=== PATIENT | male | born 1970 | race Caucasian/White ===

== ENCOUNTER 2017-07-31 12:03 | Inpatient (IN) | payer OTHER ==
[2017-07-31 15:32] VITALS: BMI 34.4
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
[2017-07-31] MEDS ORDERED: guaiFENesin/D-METHORPHAN HB 10 ML UNIT-DOSE CUPS PO PRN (18:00)
[2017-07-31] MEDS ORDERED: P-EPHED 60MG/TRIPROLIDI 2.5MG TABLET PO PRN (18:00)
[2017-07-31] MEDS ORDERED: IBUPROFEN 400 MG TABLET (FP) PO PRN (18:00)
[2017-07-31] MEDS ORDERED: MAGNESIUM HYDROX 2400MG/30ML ORAL SUSPENSION 30 ML CUP PO PRN (18:00)
[2017-07-31] MEDS ORDERED: LOPERAMIDE HCL 2 MG CAPSULE PO PRN (18:00)
[2017-07-31] MEDS ORDERED: MAG HYDROX/AL HYDROX/SIMETH 30 ML UNIT-DOSE CUP PO PRN (18:00)
[2017-07-31] MEDS ORDERED: ACETAMINOPHEN 325 MG TABLET (FP) PO PRN (18:00)
[2017-07-31] MEDS ORDERED: MAGNESIUM CITRATE 300 ML BOTTLE PO PRN (18:00)
[2017-07-31] MEDS ORDERED: NICOTINE POLACRILEX 2 MG GUM BC PRN (18:00)
[2017-07-31] MEDS ORDERED: PATIENT'S OWN MEDICATION (NON-FORMULARY) (Ipratropium/Albuterol Sulfate [Combivent Respima IH PRN (18:03)
[2017-07-31] MEDS ORDERED: ALBUTEROL SO4 2.5/IPRATROPIUM 0.5 INH SOL 3 ML VIAL.NEB. NEB PRN (18:12)
[2017-07-31 21:10] LABS: URINE APPEARANCE TURBID; URINE BILIRUBIN NEGATIVE (NEGATIVE); URINE BLOOD NEGATIVE (NEGATIVE); URINE COLOR AMBER; URINE GLUCOSE (UA) NEGATIVE (NEGATIVE); URINE KETONE TRACE (NEGATIVE); URINE LEUK ESTERASE NEGATIVE (NEGATIVE); URINE NITRITE NEGATIVE (NEGATIVE); URINE PROTEIN NEGATIVE (NEGATIVE)
[2017-07-31] MEDS: BUDESONIDE/FORMETEROL FUMARATE 80/4.5 mcg INHALER IH SCH (21:47)
[2017-07-31] MEDS: THIAMINE HCL 100 MG TABLET (FP) PO SCH (21:47)
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
[2017-08-01] MEDS ORDERED: METHADONE HCL 40 MG DISPERSABLE TABLET ONE (07:42)
[2017-08-01] MEDS ORDERED: METHADONE HCL 10 MG TABLET ONE (07:42)
[2017-08-01] MEDS: METHADONE 40 MG, METHADONE 20 MG PO SCH (07:44)
[2017-08-01] MEDS ORDERED: METHADONE HCL 10 MG TABLET PO SCH (07:45)
[2017-08-01] MEDS ORDERED: NICOTINE 14 MG/24 HOURS TOPICAL PATCH TD SCH (10:00)
[2017-08-01 10:24] LABS: HEMATOCRIT 42.7 % (35.4-49); HEMOGLOBIN 14.6 GM/dL (11.7-16.9); MCH 29.8 pg (25.7-33.7); MCHC 34.1 g/dl (32.0-35.9); MEAN CELL VOLUME 87.2 fl (80-96); MEAN PLT VOLUME 8.9 fl (7.5-11.1); PLATELET COUNT 119 K/MM3 (134-434); RBC 4.89 M/mm3 (4.00-5.60); RDW 13.1 % (11.9-15.9)
[2017-08-01 10:33] LABS: CALCIUM 9.1 mg/dL (8.5-10.1); CHLORIDE 103 mmol/L (98-107); SODIUM 142 mmol/L (136-145)
[2017-08-01 10:40] LABS: ALBUMIN 4.1 g/dl (3.4-5.0); ALK PHOS 64 U/L (45-117); ANION GAP 10 (8-16); BILIRUBIN,TOTAL 0.6 mg/dL (0.2-1.0); BLOOD UREA NITROGEN 14 mg/dL (7-18); CO2 29 mmol/L (21-32); CREATININE 0.9 mg/dL (0.7-1.3); SGOT/AST 40 U/L (15-37); SGPT/ALT 47 U/L (12-78)
[2017-08-01] MEDS: amLODIPine BESYLATE 10 MG TABLET (FP) PO SCH (10:42)
[2017-08-01] MEDS: PRENATAL VITAMINS W/ FOLIC ACID TABLET (FP) PO SCH (10:42)
[2017-08-01] MEDS: BUDESONIDE/FORMETEROL FUMARATE 80/4.5 mcg INHALER IH SCH ×2 (10:46→21:08)
[2017-08-01] MEDS: MENTHOL/PHENOL 1 EACH UD MM PRN ×2 (10:47→14:42)
[2017-08-01 10:48] LABS: GLUCOSE,RANDOM 41 mg/dL (74-106)
--- NOTE | 2017-08-01 11:17 | EKG ---
Test Reason : Blood Pressure : / mmHG Vent. Rate : 066 BPM Atrial Rate : 066 BPM P-R Int : 164 ms QRS Dur : 084 ms QT Int : 426 ms P-R-T Axes : 061 012 016 degrees QTc Int : 446 ms NORMAL SINUS RHYTHM NORMAL ECG NO PREVIOUS ECGS AVAILABLE Confirmed by TOMEKA PRATHER, FABY ([id number]) on 08/01/2017 11:17:01 AM Referred By: Confirmed By:FABY ECKERT MD
[2017-08-01] MEDS ORDERED: BUSPIRONE HCL PO SCH (13:45)
[2017-08-01] MEDS ORDERED: PT OWN MED DRAWER 7, Y5N ONE (14:19)
[2017-08-01] MEDS: hydrOXYzine PAMOATE 50 MG CAPSULE (FP) PO PRN ×2 (14:41→21:09)
[2017-08-01] MEDS: NICOTINE POLACRILEX 4 MG GUM BUC PRN (14:42)
--- NOTE | 2017-08-01 14:48 | PN ---
[facility] Progress Note Note: Vital Signs Temperature 97.8 F 08/01/17 07:11 Pulse Rate 74 08/01/17 10:00 Respiratory Rate 20 08/01/17 10:00 Blood Pressure 110/63 08/01/17 10:00 O2 Sat by Pulse Oximetry (%) 08/01/17 08/01/17 05:50 05:50 WBC 9.0 RBC 4.89 Hgb 14.6 Hct 42.7 MCV 87.2 MCHC 34.1 RDW 13.1 Plt Count 119 L Sodium 142 Potassium 4.0 Chloride 103 Carbon Dioxide 29 Anion Gap 10 BUN 14 Creatinine 0.9 Patient with BGM = 40 on lab results from specimen taken 07/31/17. Patient AOX3, denies dizziness, chest pain or SOB. Reports feeling fine and that his BGM was so low because he was using drugs. Patient reports he continues experience cigarette cravings. Patient in no apparent distress, ambulating in the unit. No adventitious breath sounds present. BGM today 148. Plan: Increase fluids Increase Nicotine patch 21 mg 08/02/17 Increase Nicotine gum 4mg 08/01/17 Increase fluids continue to monitor
[2017-08-01] MEDS: MIRTAZAPINE 15 MG TABLET (FP) PO SCH (21:08)
[2017-08-01] MEDS: THIAMINE HCL 100 MG TABLET (FP) PO SCH (21:09)
[2017-08-02] MEDS ORDERED: METHADONE HCL 10 MG TABLET ONE (04:55)
[2017-08-02] MEDS ORDERED: METHADONE HCL 40 MG DISPERSABLE TABLET ONE (04:55)
[2017-08-02] MEDS: METHADONE 40 MG, METHADONE 20 MG PO SCH (06:26)
[2017-08-02] MEDS: hydrOXYzine PAMOATE 50 MG CAPSULE (FP) PO PRN ×3 (06:27→17:18)
[2017-08-02] MEDS: MENTHOL/PHENOL 1 EACH UD MM PRN ×2 (06:28→15:50)
[2017-08-02] MEDS: PRENATAL VITAMINS W/ FOLIC ACID TABLET (FP) PO SCH (09:56)
[2017-08-02] MEDS: amLODIPine BESYLATE 10 MG TABLET (FP) PO SCH (09:56)
[2017-08-02] MEDS: NICOTINE 21 MG/24 HOURS TOPICAL PATCH TD SCH (09:56)
[2017-08-02] MEDS: BUDESONIDE/FORMETEROL FUMARATE 80/4.5 mcg INHALER IH SCH ×2 (09:56→21:12)
[2017-08-02] MEDS ORDERED: BACITRACIN 0.9 GM PACKET TP SCH (10:00)
[2017-08-02] MEDS: NICOTINE POLACRILEX 4 MG GUM BUC PRN ×2 (12:12→21:14)
[2017-08-02] MEDS ORDERED: COLLOIDAL OATMEAL 1 BAR EACH TP PRN (14:23)
[2017-08-02] MEDS: MIRTAZAPINE 15 MG TABLET (FP) PO SCH (21:13)
[2017-08-02] MEDS: BACITRACIN 15 GM TUBE TOPICAL OINTMENT TP SCH (21:14)
[2017-08-02] MEDS: THIAMINE HCL 100 MG TABLET (FP) PO SCH (21:52)
[2017-08-03] MEDS ORDERED: METHADONE HCL 40 MG DISPERSABLE TABLET ONE (05:05)
[2017-08-03] MEDS ORDERED: METHADONE HCL 10 MG TABLET ONE (05:05)
[2017-08-03] MEDS: hydrOXYzine PAMOATE 50 MG CAPSULE (FP) PO PRN ×3 (06:15→21:01)
[2017-08-03] MEDS: METHADONE 40 MG, METHADONE 20 MG PO SCH (06:15)
[2017-08-03] MEDS: BUDESONIDE/FORMETEROL FUMARATE 80/4.5 mcg INHALER IH SCH ×2 (09:43→21:02)
[2017-08-03] MEDS: amLODIPine BESYLATE 10 MG TABLET (FP) PO SCH (09:43)
[2017-08-03] MEDS: BACITRACIN 15 GM TUBE TOPICAL OINTMENT TP SCH (09:43)
[2017-08-03] MEDS: NICOTINE 21 MG/24 HOURS TOPICAL PATCH TD SCH (09:43)
[2017-08-03] MEDS: PRENATAL VITAMINS W/ FOLIC ACID TABLET (FP) PO SCH (09:44)
[2017-08-03] MEDS: MENTHOL/PHENOL 1 EACH UD MM PRN (14:06)
[2017-08-03] MEDS: NICOTINE POLACRILEX 4 MG GUM BUC PRN (17:19)
[2017-08-03] MEDS: MIRTAZAPINE 15 MG TABLET (FP) PO SCH (21:01)
[2017-08-03] MEDS: THIAMINE HCL 100 MG TABLET (FP) PO SCH (21:01)
[2017-08-03] MEDS: BACITRACIN 0.9 GM PACKET TP SCH (21:01)
[2017-08-04] MEDS ORDERED: METHADONE HCL 10 MG TABLET ONE (06:19)
[2017-08-04] MEDS ORDERED: METHADONE HCL 40 MG DISPERSABLE TABLET ONE (06:20)
[2017-08-04] MEDS: METHADONE 40 MG, METHADONE 20 MG PO SCH (06:28)
[2017-08-04] MEDS: hydrOXYzine PAMOATE 50 MG CAPSULE (FP) PO PRN ×3 (07:15→21:03)
[2017-08-04] MEDS: NICOTINE POLACRILEX 4 MG GUM BUC PRN (07:16)
[2017-08-04] MEDS: BUDESONIDE/FORMETEROL FUMARATE 80/4.5 mcg INHALER IH SCH ×2 (09:36→21:04)
[2017-08-04] MEDS: PRENATAL VITAMINS W/ FOLIC ACID TABLET (FP) PO SCH (09:36)
[2017-08-04] MEDS: amLODIPine BESYLATE 10 MG TABLET (FP) PO SCH (09:36)
[2017-08-04] MEDS: NICOTINE 21 MG/24 HOURS TOPICAL PATCH TD SCH (09:36)
[2017-08-04] MEDS: BACITRACIN 0.9 GM PACKET TP SCH ×2 (09:37→21:46)
--- NOTE | 2017-08-04 10:00 | PN ---
Psychiatric Progress Note Vital Signs: Vital Signs Period Temp Pulse Resp BP Sys/Myers Pulse Ox Last 24 Hr 97.8 F 69-79 17-18 125-138/77-97 Date of Session: 08/04/17 Chief Complaint:: Insomnia HPI: Patient addressing Sedative, Hypnotic or Anxiolytic Dependence comorbid with Opoid Dependence on Agonist Therapy, Nicotine Dependence, Anxiety Disorder , Substance-Induced Anxiety Disorder and Substance-Induced Sleep Disorder ROS: COPD, HTN, PPD+, Obesity Current Medications: Active Medications Generic Name Dose Route Start Last Admin Trade Name Freq PRN Reason Stop Dose Admin Acetaminophen 650 mg 07/31/17 18:00 Tylenol - PO Q4H PRN FEVER Al Hydroxide/Mg Hydroxide 30 ml 07/31/17 18:00 Mylanta Oral Suspension - PO Q6H PRN DYSPEPSIA Albuterol/Ipratropium 1 amp 07/31/17 18:12 Duoneb - NEB Q6H PRN SHORTNESS OF BREATH Amlodipine Besylate 10 mg 08/01/17 10:00 08/04/17 09:36 Norvasc - PO 10 mg DAILY OPAL Administration Bacitracin 0.9 gm 08/03/17 10:55 08/04/17 09:37 Bacitracin - TP 08/07/17 21:59 0.9 gm BID OPAL Administration Budesonide/Formoterol Fumarate 1 puff 07/31/17 22:00 08/04/17 09:36 Symbicort 80/4.5mcg - IH 1 inhaler BID OPAL Administration Buspirone HCl 15 mg 08/01/17 22:00 08/04/17 09:36 Buspar - PO 15 mg BID OPAL Administration Colloidal Oatmeal 1 applic 08/02/17 14:23 08/02/17 14:32 Aveeno Soap - TP 1 applic DAILY PRN Administration HYGEINE Eucalyptus/Menthol/Phenol/Sorbitol 1 each 07/31/17 18:00 08/03/17 14:06 Cepastat Lozenge - MM 1 each Q4H PRN Administration SORE THROAT Guaifenesin 10 ml 07/31/17 18:00 Robitussin Dm - PO Q6H PRN COUGH Hydroxyzine Pamoate 50 mg 07/31/17 18:00 08/04/17 07:15 Vistaril - PO 50 mg Q4H PRN Administration AGITATION Ibuprofen 400 mg 07/31/17 18:00 Motrin - PO Q6H PRN Pain level 4-6 Loperamide HCl 4 mg 07/31/17 18:00 Imodium - PO Q6H PRN DIARRHEA Magnesium Citrate 300 ml 07/31/17 18:00 Citroma - PO Q48H PRN CONSTIPATION Magnesium Hydroxide 30 ml 07/31/17 18:00 Milk Of Magnesia - PO DAILY PRN CONSTIPATION Methadone HCl 40 mg/ Methadone 60 mg 08/01/17 07:45 08/04/17 06:28 HCl 20 mg PO 60 mg DAILY@0600 OPAL Administration Mirtazapine 45 mg 08/01/17 22:00 08/03/17 21:01 Remeron - PO 45 mg HS OPAL Administration Nicotine 21 mg 08/02/17 10:00 08/04/17 09:36 Nicoderm Patch - TD 21 mg DAILY OPAL Administration Nicotine Polacrilex 4 mg 08/01/17 14:12 08/04/17 07:16 Nicorette Gum - BUC 4 mg Q2H PRN Administration NICOTINE REPLACEMENT RX Multivit/Folic Acid/Iron 1 tab 08/01/17 10:00 08/04/17 09:36 Vitamins (Sjr) - PO 1 tab DAILY OPAL Administration Pseudoephedrine/Triprolidine 1 combo 07/31/17 18:00 Actifed - PO TID PRN NASAL CONGESTION Thiamine HCl 100 mg 07/31/17 22:00 08/03/17 21:01 Vitamin B1 - PO 100 mg HS OPAL Administration Current Side Effect: No Lab tests ordered: Yes Lab tests reviewed: Yes Provider note:: Patient reports difficulty falling asleep at night despite taking Buspar 15 mg po BID and Remeron 45 mg po HS. Hypnotic properties as well as adverse-effects of Belsomra discussed with patient and he agreed to try it Total face to face time:: 15 Mental Status Exam - Mental Status Exam Alert and Oriented to: Time, Place, Person Cognitive Function: Fair Patient Appearance: Well Groomed Mood: Hopeful, Euthymic Affect: Appropriate Patient Behavior: Cooperative Speech Pattern: Clear Voice Loudness: Normal Thought Process: Intact, Goal Oriented Thought Disorder: Not Present Hallucinations: Denies Suicidal Ideation: Denies Homicidal Ideation: Denies Insight/Judgement: Fair Sleep: Poorly Appetite: Good Muscle strength/Tone: Normal Gait/Station: Normal Psychiatric Treatment Plan - Problem List (1) Sedative hypnotic or anxiolytic dependence Current Visit: Yes (2) Opioid dependence on agonist therapy Current Visit: Yes (3) Nicotine dependence Current Visit: Yes Qualifiers: Nicotine product type: cigarettes (4) Anxiety disorder Current Visit: Yes (5) Substance-induced anxiety disorder Current Visit: Yes (6) Substance-induced sleep disorder Current Visit: Yes (7) COPD (chronic obstructive pulmonary disease) Current Visit: Yes Qualifiers: COPD type: unspecified COPD Qualified Code(s): J44.9 - Chronic obstructive pulmonary disease, unspecified (8) HTN (hypertension) Current Visit: Yes Qualifiers: Hypertension type: essential hypertension Qualified Code(s): I10 - Essential (primary) hypertension (9) History of positive PPD Current Visit: Yes (10) Obese Current Visit: Yes Qualifiers: Obesity classification: adult class 1 (BMI 30 - 34.9) Serious obesity comorbidity presence: with serious comorbidity Body mass index: BMI 34.0-34.9 Initial treatment plan: 1) Start Belsomra 10 mg po HS prn for insomnia. 2) Monitor progress
[2017-08-04] MEDS ORDERED: COLLOIDAL OATMEAL 1 BAR EACH TP PRN (16:56)
[2017-08-04] MEDS: MIRTAZAPINE 15 MG TABLET (FP) PO SCH (21:02)
[2017-08-04] MEDS: SUVOREXANT 10 MG TABLET PO PRN (21:02)
[2017-08-04] MEDS: THIAMINE HCL 100 MG TABLET (FP) PO SCH (21:02)
[2017-08-05] MEDS ORDERED: METHADONE HCL 10 MG TABLET ONE (04:28)
[2017-08-05] MEDS ORDERED: METHADONE HCL 40 MG DISPERSABLE TABLET ONE (04:28)
[2017-08-05] MEDS: METHADONE 40 MG, METHADONE 20 MG PO SCH (06:39)
[2017-08-05] MEDS: hydrOXYzine PAMOATE 50 MG CAPSULE (FP) PO PRN ×3 (06:39→14:20)
[2017-08-05] MEDS ORDERED: ALBUTEROL SO4 18 GM HFA INHALER IH PRN (06:53)
[2017-08-05] MEDS: PRENATAL VITAMINS W/ FOLIC ACID TABLET (FP) PO SCH (09:54)
[2017-08-05] MEDS: NICOTINE 21 MG/24 HOURS TOPICAL PATCH TD SCH (09:54)
[2017-08-05] MEDS: amLODIPine BESYLATE 10 MG TABLET (FP) PO SCH (09:54)
[2017-08-05] MEDS: BUDESONIDE/FORMETEROL FUMARATE 80/4.5 mcg INHALER IH SCH ×2 (09:55→21:20)
[2017-08-05] MEDS: BACITRACIN 0.9 GM PACKET TP SCH ×2 (09:57→21:20)
[2017-08-05] MEDS: NICOTINE POLACRILEX 4 MG GUM BUC PRN ×2 (15:47→21:22)
[2017-08-05] MEDS: THIAMINE HCL 100 MG TABLET (FP) PO SCH (21:21)
[2017-08-05] MEDS: SUVOREXANT 10 MG TABLET PO PRN (21:21)
[2017-08-05] MEDS: MIRTAZAPINE 15 MG TABLET (FP) PO SCH (21:21)
[2017-08-06] MEDS ORDERED: METHADONE HCL 10 MG TABLET ONE (06:08)
[2017-08-06] MEDS ORDERED: METHADONE HCL 40 MG DISPERSABLE TABLET ONE (06:08)
[2017-08-06] MEDS: METHADONE 40 MG, METHADONE 20 MG PO SCH (06:28)
[2017-08-06] MEDS: hydrOXYzine PAMOATE 50 MG CAPSULE (FP) PO PRN ×3 (06:29→21:36)
[2017-08-06] MEDS: BUDESONIDE/FORMETEROL FUMARATE 80/4.5 mcg INHALER IH SCH ×2 (09:41→21:37)
[2017-08-06] MEDS: PRENATAL VITAMINS W/ FOLIC ACID TABLET (FP) PO SCH (09:42)
[2017-08-06] MEDS: BACITRACIN 0.9 GM PACKET TP SCH ×2 (09:42→21:36)
[2017-08-06] MEDS: NICOTINE 21 MG/24 HOURS TOPICAL PATCH TD SCH (09:42)
[2017-08-06] MEDS: amLODIPine BESYLATE 10 MG TABLET (FP) PO SCH (09:42)
[2017-08-06] MEDS: NICOTINE POLACRILEX 4 MG GUM BUC PRN ×2 (14:34→21:37)
[2017-08-06] MEDS: SUVOREXANT 10 MG TABLET PO PRN (21:36)
[2017-08-06] MEDS: MIRTAZAPINE 15 MG TABLET (FP) PO SCH (21:36)
[2017-08-06] MEDS: THIAMINE HCL 100 MG TABLET (FP) PO SCH (21:36)
[2017-08-07] MEDS ORDERED: METHADONE HCL 10 MG TABLET ONE (05:50)
[2017-08-07] MEDS ORDERED: METHADONE HCL 40 MG DISPERSABLE TABLET ONE (05:51)
[2017-08-07] MEDS ORDERED: SUVOREXANT 10 MG TABLET PO PRN (06:14)
[2017-08-07] MEDS: hydrOXYzine PAMOATE 50 MG CAPSULE (FP) PO PRN ×4 (06:32→21:09)
[2017-08-07] MEDS: METHADONE 40 MG, METHADONE 20 MG PO SCH (06:33)
[2017-08-07] MEDS: BUDESONIDE/FORMETEROL FUMARATE 80/4.5 mcg INHALER IH SCH ×2 (09:44→21:08)
[2017-08-07] MEDS: amLODIPine BESYLATE 10 MG TABLET (FP) PO SCH (09:44)
[2017-08-07] MEDS: BACITRACIN 0.9 GM PACKET TP SCH (09:44)
[2017-08-07] MEDS: NICOTINE POLACRILEX 4 MG GUM BUC PRN ×2 (09:45→21:10)
[2017-08-07] MEDS: PRENATAL VITAMINS W/ FOLIC ACID TABLET (FP) PO SCH (09:45)
[2017-08-07] MEDS: NICOTINE 21 MG/24 HOURS TOPICAL PATCH TD SCH (09:45)
[2017-08-07] MEDS: THIAMINE HCL 100 MG TABLET (FP) PO SCH (21:09)
[2017-08-07] MEDS: MIRTAZAPINE 15 MG TABLET (FP) PO SCH (21:09)
[2017-08-08] MEDS ORDERED: METHADONE HCL 40 MG DISPERSABLE TABLET ONE (04:30)
[2017-08-08] MEDS ORDERED: METHADONE HCL 10 MG TABLET ONE (04:30)
[2017-08-08] MEDS: hydrOXYzine PAMOATE 50 MG CAPSULE (FP) PO PRN ×2 (07:03→21:44)
[2017-08-08] MEDS: METHADONE 40 MG, METHADONE 20 MG PO SCH (07:03)
[2017-08-08] MEDS: NICOTINE 21 MG/24 HOURS TOPICAL PATCH TD SCH (10:20)
[2017-08-08] MEDS: amLODIPine BESYLATE 10 MG TABLET (FP) PO SCH (10:20)
[2017-08-08] MEDS: PRENATAL VITAMINS W/ FOLIC ACID TABLET (FP) PO SCH (10:20)
[2017-08-08] MEDS: MENTHOL/PHENOL 1 EACH UD MM PRN ×2 (10:22→21:46)
[2017-08-08] MEDS: BUDESONIDE/FORMETEROL FUMARATE 80/4.5 mcg INHALER IH SCH ×2 (10:22→21:43)
[2017-08-08] MEDS: NICOTINE POLACRILEX 4 MG GUM BUC PRN ×2 (10:22→21:45)
[2017-08-08] MEDS: THIAMINE HCL 100 MG TABLET (FP) PO SCH (21:43)
[2017-08-08] MEDS: SUVOREXANT 10 MG TABLET PO PRN (21:44)
[2017-08-08] MEDS: MIRTAZAPINE 15 MG TABLET (FP) PO SCH (21:44)
[2017-08-09] MEDS ORDERED: METHADONE HCL 40 MG DISPERSABLE TABLET ONE (04:21)
[2017-08-09] MEDS ORDERED: METHADONE HCL 10 MG TABLET ONE (04:21)
[2017-08-09] MEDS: METHADONE 40 MG, METHADONE 20 MG PO SCH (06:45)
[2017-08-09] MEDS: hydrOXYzine PAMOATE 50 MG CAPSULE (FP) PO PRN ×3 (06:46→21:35)
[2017-08-09] MEDS: NICOTINE 21 MG/24 HOURS TOPICAL PATCH TD SCH (10:01)
[2017-08-09] MEDS: amLODIPine BESYLATE 10 MG TABLET (FP) PO SCH (10:01)
[2017-08-09] MEDS: PRENATAL VITAMINS W/ FOLIC ACID TABLET (FP) PO SCH (10:01)
[2017-08-09] MEDS: BUDESONIDE/FORMETEROL FUMARATE 80/4.5 mcg INHALER IH SCH ×2 (10:01→21:35)
[2017-08-09] MEDS: NICOTINE POLACRILEX 4 MG GUM BUC PRN ×2 (10:02→21:37)
[2017-08-09] MEDS: MIRTAZAPINE 15 MG TABLET (FP) PO SCH (21:35)
[2017-08-09] MEDS: THIAMINE HCL 100 MG TABLET (FP) PO SCH (21:35)
[2017-08-09] MEDS: SUVOREXANT 10 MG TABLET PO PRN (21:35)
[2017-08-10] MEDS ORDERED: METHADONE HCL 10 MG TABLET ONE (04:30)
[2017-08-10] MEDS ORDERED: METHADONE HCL 40 MG DISPERSABLE TABLET ONE (04:30)
[2017-08-10] MEDS: hydrOXYzine PAMOATE 50 MG CAPSULE (FP) PO PRN ×3 (06:39→21:40)
[2017-08-10] MEDS: METHADONE 40 MG, METHADONE 20 MG PO SCH (06:39)
[2017-08-10] MEDS: PRENATAL VITAMINS W/ FOLIC ACID TABLET (FP) PO SCH (10:22)
[2017-08-10] MEDS: NICOTINE 21 MG/24 HOURS TOPICAL PATCH TD SCH (10:23)
[2017-08-10] MEDS: BUDESONIDE/FORMETEROL FUMARATE 80/4.5 mcg INHALER IH SCH ×2 (10:23→21:38)
[2017-08-10] MEDS: amLODIPine BESYLATE 10 MG TABLET (FP) PO SCH (10:23)
[2017-08-10] MEDS: NICOTINE POLACRILEX 4 MG GUM BUC PRN ×2 (10:25→21:39)
[2017-08-10] MEDS: THIAMINE HCL 100 MG TABLET (FP) PO SCH (21:38)
[2017-08-10] MEDS: SUVOREXANT 10 MG TABLET PO PRN (21:38)
[2017-08-10] MEDS: MIRTAZAPINE 15 MG TABLET (FP) PO SCH (21:39)
[2017-08-11] MEDS ORDERED: METHADONE HCL 10 MG TABLET ONE (03:16)
[2017-08-11] MEDS ORDERED: METHADONE HCL 40 MG DISPERSABLE TABLET ONE (03:16)
[2017-08-11] MEDS: METHADONE 40 MG, METHADONE 20 MG PO SCH (06:35)
[2017-08-11] MEDS: hydrOXYzine PAMOATE 50 MG CAPSULE (FP) PO PRN (06:46)
[2017-08-11] MEDS: BUDESONIDE/FORMETEROL FUMARATE 80/4.5 mcg INHALER IH SCH ×2 (10:11→21:52)
[2017-08-11] MEDS: PRENATAL VITAMINS W/ FOLIC ACID TABLET (FP) PO SCH (10:11)
[2017-08-11] MEDS: NICOTINE POLACRILEX 4 MG GUM BUC PRN ×3 (10:12→21:50)
[2017-08-11] MEDS: amLODIPine BESYLATE 10 MG TABLET (FP) PO SCH (10:12)
[2017-08-11] MEDS: NICOTINE 21 MG/24 HOURS TOPICAL PATCH TD SCH (10:12)
[2017-08-11] MEDS: MIRTAZAPINE 15 MG TABLET (FP) PO SCH (21:50)
[2017-08-11] MEDS: SUVOREXANT 10 MG TABLET PO PRN (21:50)
[2017-08-11] MEDS: THIAMINE HCL 100 MG TABLET (FP) PO SCH (21:50)
[2017-08-11] MEDS ORDERED: PT OWN MED DRAWER 7, Y5N ONE (21:52)
[2017-08-12] MEDS ORDERED: METHADONE HCL 40 MG DISPERSABLE TABLET ONE (04:06)
[2017-08-12] MEDS ORDERED: METHADONE HCL 10 MG TABLET ONE (04:06)
[2017-08-12] MEDS: NICOTINE POLACRILEX 4 MG GUM BUC PRN ×4 (06:34→21:47)
[2017-08-12] MEDS: METHADONE 40 MG, METHADONE 20 MG PO SCH (06:34)
[2017-08-12] MEDS: hydrOXYzine PAMOATE 50 MG CAPSULE (FP) PO PRN ×3 (06:34→21:45)
[2017-08-12] MEDS: NICOTINE 21 MG/24 HOURS TOPICAL PATCH TD SCH (10:25)
[2017-08-12] MEDS: amLODIPine BESYLATE 10 MG TABLET (FP) PO SCH (10:25)
[2017-08-12] MEDS: PRENATAL VITAMINS W/ FOLIC ACID TABLET (FP) PO SCH (10:25)
[2017-08-12] MEDS: BUDESONIDE/FORMETEROL FUMARATE 80/4.5 mcg INHALER IH SCH ×2 (10:27→21:45)
[2017-08-12] MEDS ORDERED: PT OWN MED DRAWER 7, Y5N ONE (10:27)
[2017-08-12] MEDS: SUVOREXANT 10 MG TABLET PO PRN (21:45)
[2017-08-12] MEDS: MIRTAZAPINE 15 MG TABLET (FP) PO SCH (21:45)
[2017-08-12] MEDS: THIAMINE HCL 100 MG TABLET (FP) PO SCH (21:45)
[2017-08-13] MEDS ORDERED: METHADONE HCL 10 MG TABLET ONE (04:14)
[2017-08-13] MEDS ORDERED: METHADONE HCL 40 MG DISPERSABLE TABLET ONE (04:14)
[2017-08-13] MEDS: METHADONE 40 MG, METHADONE 20 MG PO SCH (06:32)
[2017-08-13] MEDS: NICOTINE POLACRILEX 4 MG GUM BUC PRN ×2 (06:32→10:22)
[2017-08-13] MEDS: hydrOXYzine PAMOATE 50 MG CAPSULE (FP) PO PRN ×3 (06:32→21:36)
--- NOTE | 2017-08-13 09:44 | PN ---
Psychiatric Progress Note Vital Signs: Vital Signs Period Temp Pulse Resp BP Sys/Myers Pulse Ox Last 24 Hr 98.1 F 68 18-18 141/76 Date of Session: 08/13/17 Chief Complaint:: Discharge Note HPI: Patient addressing Sedative, Hypnotic or Anxiolytic Dependence comorbid with Nicotine Dependence, Nicotine Dependence, Anxiety Disorder, Substance- Induced Anxiety Disorder and Substance-Induced Sleep Disorder ROS: COPD, HTN, PPD+, Obesity Current Medications: Active Medications Generic Name Dose Route Start Last Admin Trade Name Freq PRN Reason Stop Dose Admin Acetaminophen 650 mg 07/31/17 18:00 08/05/17 20:17 Tylenol - PO 650 mg Q4H PRN Administration FEVER Al Hydroxide/Mg Hydroxide 30 ml 07/31/17 18:00 Mylanta Oral Suspension - PO Q6H PRN DYSPEPSIA Albuterol Sulfate 2 puff 08/05/17 06:53 Ventolin Hfa Inhaler - IH Q4H PRN SHORT OF BREATH/WHEEZING Albuterol/Ipratropium 1 amp 07/31/17 18:12 Duoneb - NEB Q6H PRN SHORTNESS OF BREATH Amlodipine Besylate 10 mg 08/01/17 10:00 08/12/17 10:25 Norvasc - PO 10 mg DAILY OPAL Administration Budesonide/Formoterol Fumarate 1 puff 07/31/17 22:00 08/12/17 21:45 Symbicort 80/4.5mcg - IH 1 inhaler BID OPAL Administration Buspirone HCl 15 mg 08/01/17 22:00 08/12/17 21:45 Buspar - PO 15 mg BID OPAL Administration Colloidal Oatmeal 1 applic 08/04/17 16:56 Aveeno Soap - TP DAILY PRN HYGEINE Eucalyptus/Menthol/Phenol/Sorbitol 1 each 07/31/17 18:00 08/08/17 21:46 Cepastat Lozenge - MM 1 each Q4H PRN Administration SORE THROAT Guaifenesin 10 ml 07/31/17 18:00 Robitussin Dm - PO Q6H PRN COUGH Hydroxyzine Pamoate 50 mg 07/31/17 18:00 08/13/17 06:32 Vistaril - PO 50 mg Q4H PRN Administration AGITATION Ibuprofen 400 mg 07/31/17 18:00 Motrin - PO Q6H PRN Pain level 4-6 Loperamide HCl 4 mg 07/31/17 18:00 Imodium - PO Q6H PRN DIARRHEA Magnesium Citrate 300 ml 07/31/17 18:00 Citroma - PO Q48H PRN CONSTIPATION Magnesium Hydroxide 30 ml 07/31/17 18:00 Milk Of Magnesia - PO DAILY PRN CONSTIPATION Methadone HCl 40 mg/ Methadone 60 mg 08/13/17 06:00 08/13/17 06:32 HCl 20 mg PO 08/19/17 05:59 60 mg DAILY@0600 OPAL Administration Mirtazapine 45 mg 08/01/17 22:00 08/12/17 21:45 Remeron - PO 45 mg HS OPAL Administration Nicotine 21 mg 08/02/17 10:00 08/12/17 10:25 Nicoderm Patch - TD 21 mg DAILY OPAL Administration Nicotine Polacrilex 4 mg 08/01/17 14:12 08/13/17 06:32 Nicorette Gum - BUC 4 mg Q2H PRN Administration NICOTINE REPLACEMENT RX Multivit/Folic Acid/Iron 1 tab 08/01/17 10:00 08/12/17 10:25 Vitamins (Sjr) - PO 1 tab DAILY OPAL Administration Pseudoephedrine/Triprolidine 1 combo 07/31/17 18:00 Actifed - PO TID PRN NASAL CONGESTION Thiamine HCl 100 mg 07/31/17 22:00 08/12/17 21:45 Vitamin B1 - PO 100 mg HS OPAL Administration Current Side Effect: No Lab tests ordered: Yes Lab tests reviewed: Yes Provider note:: Patient will complete this program on 08/14/17. He has met his treatment goals and will continue to address his issues in [employer] residential treatment at [facility] at [address] [place] [address]. He verbalized understanding of the negative consequences of his addiction and told jingle writer that from his participation in this program, he has learned the importance of the adage "think before you act". He responded well to Buspar 15 mg po BID, Remeron 45 mg po HS and Belsomra 10 mg po HS. Scripts for 30 days supply of Buspar and Remeron are electronically transmitted to [facility] at [address] [place] [address]. He is stable for discharge on 08/14/17 Total face to face time:: 35 Mental Status Exam - Mental Status Exam Alert and Oriented to: Time, Place, Person Cognitive Function: Fair Patient Appearance: Well Groomed Mood: Hopeful, Euthymic Affect: Appropriate Patient Behavior: Cooperative Speech Pattern: Clear Voice Loudness: Normal Thought Process: Intact, Goal Oriented Thought Disorder: Not Present Hallucinations: Denies Suicidal Ideation: Denies Homicidal Ideation: Denies Insight/Judgement: Fair Sleep: Fair Appetite: Good Muscle strength/Tone: Normal Gait/Station: Normal Psychiatric Treatment Plan - Problem List (1) Sedative hypnotic or anxiolytic dependence Current Visit: Yes (2) Opioid dependence on agonist therapy Current Visit: Yes (3) Nicotine dependence Current Visit: Yes Qualifiers: Nicotine product type: cigarettes (4) Anxiety disorder Current Visit: Yes (5) Substance-induced anxiety disorder Current Visit: Yes (6) Substance-induced sleep disorder Current Visit: Yes (7) COPD (chronic obstructive pulmonary disease) Current Visit: Yes Qualifiers: COPD type: unspecified COPD Qualified Code(s): J44.9 - Chronic obstructive pulmonary disease, unspecified (8) HTN (hypertension) Current Visit: Yes Qualifiers: Hypertension type: essential hypertension Qualified Code(s): I10 - Essential (primary) hypertension (9) History of positive PPD Current Visit: Yes (10) Obese Current Visit: Yes Qualifiers: Obesity classification: adult class 1 (BMI 30 - 34.9) Serious obesity comorbidity presence: with serious comorbidity Body mass index: BMI 34.0-34.9 Initial treatment plan: Patient will be discharged tomorrow and referred to [facility] for residential treatment
[2017-08-13] MEDS: NICOTINE 21 MG/24 HOURS TOPICAL PATCH TD SCH (10:22)
[2017-08-13] MEDS: PRENATAL VITAMINS W/ FOLIC ACID TABLET (FP) PO SCH (10:22)
[2017-08-13] MEDS: amLODIPine BESYLATE 10 MG TABLET (FP) PO SCH (10:22)
[2017-08-13] MEDS: BUDESONIDE/FORMETEROL FUMARATE 80/4.5 mcg INHALER IH SCH ×2 (10:22→21:40)
[2017-08-13] MEDS: SUVOREXANT 10 MG TABLET PO PRN (21:36)
[2017-08-13] MEDS: THIAMINE HCL 100 MG TABLET (FP) PO SCH (21:36)
[2017-08-13] MEDS: MIRTAZAPINE 15 MG TABLET (FP) PO SCH (21:37)
[2017-08-13] MEDS: MENTHOL/PHENOL 1 EACH UD MM PRN (21:40)
[2017-08-14] MEDS ORDERED: METHADONE HCL 40 MG DISPERSABLE TABLET ONE (04:38)
[2017-08-14] MEDS ORDERED: METHADONE HCL 10 MG TABLET ONE (04:38)
[2017-08-14] MEDS: METHADONE 40 MG, METHADONE 20 MG PO SCH (06:35)
[2017-08-14] MEDS: hydrOXYzine PAMOATE 50 MG CAPSULE (FP) PO PRN (06:36)
[2017-08-14 06:58] VITALS: TEMP 97.9
[2017-08-14] MEDS ORDERED: PT OWN MED DRAWER 7, Y5N ONE (09:14)
[2017-08-14] MEDS: amLODIPine BESYLATE 10 MG TABLET (FP) PO SCH (09:15)
[2017-08-14] MEDS: NICOTINE 21 MG/24 HOURS TOPICAL PATCH TD SCH (09:15)
[2017-08-14] MEDS: PRENATAL VITAMINS W/ FOLIC ACID TABLET (FP) PO SCH (09:15)
[2017-08-14] MEDS: BUDESONIDE/FORMETEROL FUMARATE 80/4.5 mcg INHALER IH SCH (09:15)
[2017-08-14 09:17] VITALS: BP 148/78; PULSE 116
[2017-08-14] MEDS ORDERED: SUVOREXANT 10 MG TABLET PO PRN (10:04)
== END 2017-08-14 09:35 | disposition home or self-care (01) | DRG 772 ==
LOC: YASAS 12:03 → Y3W 17:10
PROVIDERS: ADMIT Psychiatry & Neurology Psychiatry; ATTEND Psychiatry & Neurology Psychiatry
PROC: HZ42ZZZ Group Counseling for Substance Abuse Treatment, Cognitive-Behavioral (ICD-10-PCS; principal; 2017-08-10)
DX: F11.20 Opioid dependence, uncomplicated (principal); F13.20 Sedative, hypnotic or anxiolytic dependence, uncomplicated; F12.20 Cannabis dependence, uncomplicated; F17.210 Nicotine dependence, cigarettes, uncomplicated; F41.9 Anxiety disorder, unspecified; F19.280 Other psychoactive substance dependence with psychoactive substance-induced anxiety disorder; F19.282 Other psychoactive substance dependence with psychoactive substance-induced sleep disorder; I10 Essential (primary) hypertension; J44.9 Chronic obstructive pulmonary disease, unspecified; Z68.34 Body mass index [BMI] 34.0-34.9, adult; R76.11 Nonspecific reaction to tuberculin skin test without active tuberculosis
CPT/HCPCS: 36415; 71046-TC-FY; 80053; 81003; 82962; 85027; 86593; 93005; 93010